=== PATIENT | female | born 1950 | race Asian ===

== ENCOUNTER 2018-12-11 12:58 | Day surgery (SDC) | payer OTHER ==
[2018-12-10 11:39] VITALS: BMI 26.6
[2018-12-11] MEDS ORDERED: MIDAZOLAM HCL 2 MG/2 ML SINGLE DOSE VIAL ONE (13:51)
[2018-12-11] MEDS ORDERED: BACITRACIN 15 GM TUBE TOPICAL OINTMENT ONE (14:30)
[2018-12-11] MEDS ORDERED: oxyCODONE HCL 5 MG TABLET PO PRN ×3 (14:37→14:49)
[2018-12-11] MEDS ORDERED: ONDANSETRON 4 MG/2 ML VIAL IVPUSH PRN ×2 (14:37→14:49)
[2018-12-11] MEDS ORDERED: LACTATED RINGERS SOLUTION 1,000 ML IV SCH (14:45)
--- NOTE | 2018-12-11 14:48 | HP ---
History & Physical Update - History History: No Change - Physical Physical: No Change - Assessment Assessment: No Change - Plan Plan: No Change (H&P unchanged Consent signed and witnessed)
[2018-12-11] MEDS ORDERED: IBUPROFEN 800 MG/8 ML IJ IVPB PRN (14:49)
[2018-12-11] MEDS ORDERED: IBUPROFEN 600 MG TABLET (FP) PO PRN (14:49)
--- NOTE | 2018-12-11 14:49 | OP ---
Operative Note - Note: Operative Date: 12/11/18 Pre-Operative Diagnosis: 68yo with h/o Breast CA, s/p Tamoxifen with Thick endometrium, h/o c/section x 3, severily antiflexed uterus Operation: Hysteroscopy, D&C Findings: Severely anteflexed uterus overgrown cervical and uterine Epithelium Post-Operative Diagnosis: Same as Pre-op Surgeon: Janiya Granados Anesthesiologist/SENIOR APPLICATIONS ANALYST: Carin June Anesthesia: MAC Specimens Removed: Endometrial and Endocervical curettings Estimated Blood Loss (mls): 20 Instrument used (Debridements only): Symphion Drains & Tubes with Location: Fluid deficit - 50cc Drains, Volume Out (mls): 20 Fluid Volume Replaced (mls): 700 Operative Report Dictated: Yes
[2018-12-11] MEDS ORDERED: ELECTROLYTE-148 SOLN 1,000 ML IV SCH (15:00)
[2018-12-11] MEDS ORDERED: DEXAMETHASONE SOD PHOSPHATE 4 MG/1 ML VIAL ONE (15:09)
[2018-12-11] MEDS ORDERED: KETOROLAC TROMETHAMINE 30 MG/1 ML VIAL ONE (15:09)
[2018-12-11 17:25] VITALS: BP 144/92; PULSE 62; TEMP 97.7
--- NOTE | 2018-12-14 14:30 | PATH ---
Surgical Pathology Report Patient Name: JANETTE CODY [facility]. Rec. #: [id number] /Age/Gender: 1950 (Age: 68) / F Account: [id number] Location: [facility] SURGICAL Taken: 12/11/2018 Received: 12/12/2018 Reported: 12/14/2018 Physicians: Janiya Granados M.D. Specimen(s) Received ENDOCERVICAL AND ENDOMETRIAL CURETTINGS Clinical History Endometrium thickened Final Diagnosis ENDOMETRIAL CURETTINGS AND ENDOCERVICAL CURETTINGS: FRAGMENTS OF ENDOCERVICAL, ENDOMETRIAL, AND MIXED ENDOCERVICAL/ENDOMETRIAL POLYP. 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 SEPARATE SQUAMOUS EPITHELIUM AND ENDOCERVICAL TISSUE WITH NO SIGNIFICANT PATHOLOGIC CHANGE. Electronically Signed Amparo Foster M.D. Gross Description Received in formalin labeled "endometrial curettings and endocervical curettings," is a 4.0 x 3.0 x 0.3 cm aggregate of mathew soft tissue fragments admixed with mucus. The formalin is filtered and the specimen is entirely submitted in 3 cassettes. DL/12/12/2018 saudi/12/12/2018
--- NOTE | 2018-12-17 15:53 | OP ---
DATE OF OPERATION: 12/11/2018 PREOPERATIVE DIAGNOSIS: A 68-year-old with history of breast cancer, status post tamoxifen; history of multiple sections; severely anteflexed uterus and thick endometrium. PROCEDURE PERFORMED: Hysteroscopy, polypectomy, dilatation and curettage. FINDINGS: Severely anteflexed uterus. Extreme difficulty gaining access into the uterine cavity, and overgrown cervical and uterine epithelium. PREOPERATIVE DIAGNOSIS: A 68-year-old with history of breast cancer, status post tamoxifen; history of multiple sections; severely anteflexed uterus and thick endometrium. SURGEON: Janiya Granados MD ANESTHESIOLOGIST: , PHYSICAL TESTING SUPERVISOR ANESTHESIA: MAC. SPECIMENS REMOVED: Endometrial and endocervical curettings. DESCRIPTION OF PROCEDURE: After assuring informed consent, the patient was brought to the operating room, where she was placed in the dorsal lithotomy position. The perineum was prepped and draped in sterile fashion after a time-out was completed. Symphion hysteroscope was white balanced and primed. Several different vaginal retractors were used to try to obtain visualization of the cervix, since the uterus was misplaced due to prior multiple C-sections. The vaginal hysterectomy set needed to be used in order to finally find the cervix and articulated with a single-tooth tenaculum. Hegar dilators were used to dilate the cervix. Subsequently, with significant difficulty, the hysteroscope was finally introduced inside the cervix, which was found to be covered with somewhat irregular-appearing tissue. The resectoscope was introduced through the instrument and cervical tissue resection was performed initially. Subsequently the resectoscope was used to dilate the internal os and slide the hysteroscope over the instrument to access the endometrial cavity. Subsequently the endometrial cavity was visualized and was also found to have overgrown endometrium. So instruments used to perform circumferential dissection of the endometrium and polypoid tissue. Adequate endometrial curettings were performed, and the procedure was completed. Instrument and sponge counts were correct x2. Silver nitrate was applied to the cervix to achieved hemostasis. Estimated blood loss was 20 mL. The patient received 700 mL of IV fluids. The patient tolerated the procedure well and was brought into the recovery room in stable condition. Mateo [id number]
== END 2018-12-11 18:40 | disposition home or self-care (01) ==
LOC: JASU-SURG 12:58
PROVIDERS: ATTEND Obstetrics & Gynecology
PROC: 0UDB8ZX Extraction of Endometrium, Via Natural or Artificial Opening Endoscopic, Diagnostic (ICD-10-PCS; 2018-12-11)
PROC: 0UBC8ZX Excision of Cervix, Via Natural or Artificial Opening Endoscopic, Diagnostic (ICD-10-PCS; principal; 2018-12-11 14:30)
PROC: 0UB98ZX Excision of Uterus, Via Natural or Artificial Opening Endoscopic, Diagnostic (ICD-10-PCS; 2018-12-11 14:30)
DX: N85.4 Malposition of uterus (principal); N85.00 Endometrial hyperplasia, unspecified; B85.3 Phthiriasis; Z87.59 Personal history of other complications of pregnancy, childbirth and the puerperium
CPT/HCPCS: 87086; 88305-TC; 94760

== ENCOUNTER 2020-05-27 23:39 | Observation (INO) | payer OTHER ==
[2020-05-27 23:59] VITALS: BMI 25.2
[2020-05-28] MEDS ORDERED: ONDANSETRON 4 MG TABLET PO ONE (00:18)
[2020-05-28] MEDS ORDERED: MECLIZINE HCL 25 MG TABLET (FP) PO ONE (00:18)
[2020-05-28] MEDS ORDERED: MECLIZINE HCL 25 MG TABLET (FP) ONE (00:22)
[2020-05-28] MEDS ORDERED: ONDANSETRON *ODT* 4 MG TABLET ONE (00:22)
[2020-05-28 00:42] LABS: BASO % 0.6 % (0-2.0); EOS % 0.6 % (0-4.5); HEMOGLOBIN 13.5 GM/dL (10.7-15.3); MCH 31.1 pg (25.7-33.7); MCHC 34.5 g/dl (32.0-36.0); MEAN CELL VOLUME 90.2 fl (80-96); MEAN PLT VOLUME 7.4 fl (7.5-11.1); MONO % 6.3 % (3.8-10.2); NEUT % 56.5 % (42.8-82.8); PLATELET COUNT 364 K/MM3 (134-434); RBC 4.32 M/mm3 (3.60-5.2); WHITE BLOOD COUNT 7.6 K/mm3 (4.0-10.0)
[2020-05-28 00:58] LABS: CHLORIDE 104 mmol/L (98-107); POTASSIUM 3.6 mmol/L (3.5-5.1); SODIUM 137 mmol/L (136-145)
[2020-05-28 01:02] LABS: ALBUMIN 3.9 g/dl (3.4-5.0); ANION GAP 9 MMOL/L (8-16); BLOOD UREA NITROGEN 17.8 mg/dL (7-18); CALCIUM 9.1 mg/dL (8.5-10.1); CO2 24 mmol/L (21-32); GLUCOSE,RANDOM 141 mg/dL (74-106)
[2020-05-28 01:05] LABS: SGOT/AST 19 U/L (15-37); SGPT/ALT 28 U/L (13-61)
[2020-05-28 01:06] LABS: CREATININE 0.7 mg/dL (0.55-1.3)
[2020-05-28 01:07] LABS: BILIRUBIN,TOTAL 0.5 mg/dL (0.2-1); TOT PROT 7.1 g/dl (6.4-8.2)
[2020-05-28 01:08] LABS: ALK PHOS 76 U/L (45-117)
[2020-05-28] MEDS ORDERED: LACTATED RINGERS SOLUTION 1,000 ML IV STA (11:42)
[2020-05-28] MEDS ORDERED: ACETAMINOPHEN 325 MG TABLET (FP) PO PRN (11:42)
[2020-05-28] MEDS ORDERED: HEPARIN NA (PORCINE) 5,000 UNITS/ML 1ML VIAL ONE (14:03)
[2020-05-28] MEDS: HEPARIN NA (PORCINE) 5,000 UNITS/ML 1ML VIAL SQ SCH ×2 (14:32→22:13)
[2020-05-28] MEDS ORDERED: ACETAMINOPHEN 325 MG TABLET (FP) ONE (16:24)
[2020-05-29] MEDS: HEPARIN NA (PORCINE) 5,000 UNITS/ML 1ML VIAL SQ SCH ×2 (06:41→14:12)
[2020-05-29 06:57] VITALS: TEMP 97.8
[2020-05-29 08:19] LABS: BASO % 0.8 % (0-2.0); EOS % 1.9 % (0-4.5); HEMATOCRIT 38.8 % (32.4-45.2); HEMOGLOBIN 13.3 GM/dL (10.7-15.3); LYMPH % 49.8 % (8-40); MCH 31.1 pg (25.7-33.7); MCHC 34.4 g/dl (32.0-36.0); MEAN CELL VOLUME 90.5 fl (80-96); MEAN PLT VOLUME 7.8 fl (7.5-11.1); MONO % 7.3 % (3.8-10.2); NEUT % 40.2 % (42.8-82.8); PLATELET COUNT 354 K/MM3 (134-434); RBC 4.29 M/mm3 (3.60-5.2); WHITE BLOOD COUNT 5.8 K/mm3 (4.0-10.0)
[2020-05-29 08:46] LABS: ALBUMIN 3.4 g/dl (3.4-5.0); BLOOD UREA NITROGEN 17.4 mg/dL (7-18); CALCIUM 8.7 mg/dL (8.5-10.1); MAGNESIUM 2.4 mg/dL (1.8-2.4)
[2020-05-29 08:49] LABS: CREATININE 0.7 mg/dL (0.55-1.3)
[2020-05-29 08:50] LABS: BILIRUBIN,TOTAL 0.5 mg/dL (0.2-1); POTASSIUM 4.2 mmol/L (3.5-5.1); TOT PROT 6.4 g/dl (6.4-8.2)
[2020-05-29] MEDS ORDERED: HEPARIN NA (PORCINE) 5,000 UNITS/ML 1ML VIAL ONE (14:08)
[2020-05-29 16:47] VITALS: BP 141/65; PULSE 61
== END 2020-05-29 17:50 | disposition home or self-care (01) ==
LOC: JER 23:39 → JERBED 05-28 05:15
PROVIDERS: ADMIT Internal Medicine; ATTEND Student in an Organized Health Care Education/Training Program
PROC: 3E0337Z Introduction of Electrolytic and Water Balance Substance into Peripheral Vein, Percutaneous Approach (ICD-10-PCS; principal; 2020-05-28)
PROC: 3E023GC Introduction of Other Therapeutic Substance into Muscle, Percutaneous Approach (ICD-10-PCS; 2020-05-28)
DX: I10 Essential (primary) hypertension (principal); R01.1 Cardiac murmur, unspecified; I44.7 Left bundle-branch block, unspecified; Z85.3 Personal history of malignant neoplasm of breast; Z29.9 Encounter for prophylactic measures, unspecified
CPT/HCPCS: 36415; 70450-TC; 71045-TC-FY; 80053; 82550; 83036; 83735; 84100; 84484; 85025; 93005; 93010; 93306-TC; 96360; 96372; 99285-25; C9803; G0378; J1644; U0003; U0005